=== PATIENT | female | born 1985 | race Two or more races ===

== ENCOUNTER 2017-12-24 22:41 | Emergency (ER) | payer OTHER ==
[~2017-12-24] VITALS: Ht 157.5 cm; Wt 59.0 kg
[2017-12-24] MEDS ORDERED: SYNTHROID50 MCG (22:53)
[2017-12-25] MEDS ORDERED: IBUPROFEN800 MG PO (01:27)
== END 2017-12-25 02:41 | disposition home or self-care (01) ==
LOC: ER 22:41
DX: R10.2 Pelvic and perineal pain (principal)

== ENCOUNTER 2018-12-13 15:02 | Emergency (ER) | payer OTHER ==
[~2018-12-13] VITALS: Ht 157.5 cm; Wt 59.0 kg
[~2018-12-13 15:02] MED LIST: IBUPROFEN800 MG PO; SYNTHROID50 MCG
[2018-12-13] MEDS ORDERED: ZOFRAN8 MG PO (15:49)
== END 2018-12-13 21:31 | disposition home or self-care (01) ==
LOC: ER 15:02
DX: O21.0 Mild hyperemesis gravidarum (principal); O23.42 Unspecified infection of urinary tract in pregnancy, second trimester; R10.2 Pelvic and perineal pain; Z34.02 Encounter for supervision of normal first pregnancy, second trimester

== ENCOUNTER 2019-03-15 11:50 | Outpatient (CLI) | payer OTHER ==
[~2019-03-15 11:50] MED LIST changes: +ZOFRAN8 MG PO
[2019-03-15] MEDS ORDERED: ZOFRAN4 MG PO (20:50)
[2019-03-15] MEDS ORDERED: SYNTHROID50 MCG PO (20:50)
== END 2019-03-15 14:10 | disposition home or self-care (01) ==
LOC: NST 11:50
DX: O35.8XX0 Maternal care for other (suspected) fetal abnormality and damage, not applicable or unspecified (principal); Z3A.27 27 weeks gestation of pregnancy

== ENCOUNTER 2019-03-15 13:58 | Inpatient (IN) | payer OTHER ==
[~2019-03-15] VITALS: Ht 157.5 cm; Wt 58.1 kg
[2019-03-15] MEDS ORDERED: ZOFRAN4 MG PO (20:50)
[2019-03-15] MEDS ORDERED: SYNTHROID50 MCG PO (20:50)
== END 2019-03-17 13:46 | DRG 832 ==
LOC: LDR 13:58 → OB/GYN 03-16 16:25
PROVIDERS: ADMIT Obstetrics & Gynecology
PROC: 4A1HXCZ Monitoring of Products of Conception, Cardiac Rate, External Approach (ICD-10-PCS; principal; 2019-03-15)
PROC: BY4FZZZ Ultrasonography of Third Trimester, Single Fetus (ICD-10-PCS; 2019-03-16)
DX: O60.03 Preterm labor without delivery, third trimester (principal); O26.873 Cervical shortening, third trimester

== ENCOUNTER 2019-03-19 10:30 | Outpatient (CLI) | payer OTHER ==
[~2019-03-19 10:30] MED LIST changes: +SYNTHROID50 MCG PO; +ZOFRAN4 MG PO
== END 2019-03-19 11:33 | disposition home or self-care (01) ==
LOC: NST 10:30
DX: O35.8XX0 Maternal care for other (suspected) fetal abnormality and damage, not applicable or unspecified (principal); Z3A.28 28 weeks gestation of pregnancy

== ENCOUNTER 2019-05-07 10:27 | Inpatient (IN) | payer OTHER ==
[~2019-05-07] VITALS: Ht 157.5 cm; Wt 60.8 kg
[2019-06-05] MEDS ORDERED: PEPCID AC10 MG PO (06:53)
== END 2019-06-07 08:40 | disposition home or self-care (01) | DRG 807 ==
LOC: LDR 06-05 06:18 → OB/GYN 06-05 17:52
PROVIDERS: ADMIT Obstetrics & Gynecology
PROC: 10E0XZZ Delivery of Products of Conception, External Approach (ICD-10-PCS; principal; 2019-06-05)
PROC: 0UQGXZZ Repair Vagina, External Approach (ICD-10-PCS; 2019-06-05)
PROC: 10907ZC Drainage of Amniotic Fluid, Therapeutic from Products of Conception, Via Natural or Artificial Opening (ICD-10-PCS; 2019-06-05)
PROC: 3E033VJ Introduction of Other Hormone into Peripheral Vein, Percutaneous Approach (ICD-10-PCS; 2019-06-05)
PROC: 4A1HXCZ Monitoring of Products of Conception, Cardiac Rate, External Approach (ICD-10-PCS; 2019-06-05)
DX: O71.4 Obstetric high vaginal laceration alone (principal); Z37.0 Single live birth; Z3A.39 39 weeks gestation of pregnancy

== ENCOUNTER 2019-05-12 01:18 | Outpatient (CLI) | payer OTHER | END 2019-05-12 12:51 | disposition home or self-care (01) | LOC: OBS/DEL 01:18 | DX: O60.03 Preterm labor without delivery, third trimester (principal) ==

== ENCOUNTER 2019-05-26 20:44 | Outpatient (CLI) | payer OTHER | END 2019-05-27 09:40 | disposition home or self-care (01) | LOC: OBS/DEL 20:44 | DX: O47.1 False labor at or after 37 completed weeks of gestation (principal); O34.13 Maternal care for benign tumor of corpus uteri, third trimester; D25.9 Leiomyoma of uterus, unspecified ==

== ENCOUNTER 2021-02-06 08:00 | Outpatient (CLI) | payer OTHER ==
[~2021-02-06 08:00] MED LIST changes: +PEPCID AC10 MG PO
== END 2021-02-06 08:30 | disposition home or self-care (01) ==
LOC: PPH VACUNA 08:00
DX: Z23 Encounter for immunization (principal)

== ENCOUNTER 2021-02-27 10:34 | Outpatient (CLI) | payer OTHER | END 2021-02-27 10:38 | disposition home or self-care (01) | LOC: PPH VACUNA 10:34 | PROVIDERS: ATTEND Emergency Medicine Pediatric Emergency Medicine | DX: Z23 Encounter for immunization (principal) ==

== ENCOUNTER → 2022-11-16 | Emergency (ER) | payer OTHER ==
[~2022-11-16] VITALS: Ht 157.5 cm; Wt 60.8 kg
== END | disposition left against medical advice (07) ==
LOC: ER 21:26
DX: Z53.21 Procedure and treatment not carried out due to patient leaving prior to being seen by health care provider (principal)